=== PATIENT | male | born 1980 | race Caucasian/White ===

== ENCOUNTER → 2020-12-29 | Outpatient (CLI) | payer OTHER ==
[~2020-12-29] MED LIST: AUGMENTIN 875-1 EACH PO; DECADRON6 MG PO; VENTOLIN HFA 66.7 GM INH
== END ==
LOC: KOH-I 15:50
DX: M54.2 Cervicalgia (principal); M54.6 Pain in thoracic spine; M47.812 Spondylosis without myelopathy or radiculopathy, cervical region
CPT/HCPCS: 72040; 72080

== ENCOUNTER → 2021-05-29 | Outpatient (CLI) | payer BC | LOC: KOH-I 11:41 | DX: M25.552 Pain in left hip (principal) | CPT/HCPCS: 73502 ==